=== PATIENT | male | born 1960 | race Caucasian/White ===

== ENCOUNTER 2016-10-19 18:03 | Observation (INO) ==
[2016-10-19] MEDS ORDERED: HYDROmorphone 2 MG/1 ML VIAL IV STA ×2 (18:51→21:06)
[2016-10-19] MEDS ORDERED: SODIUM CHLORIDE 0.9% 1,000 ML IV STA (18:52)
[2016-10-19] MEDS ORDERED: ONDANSETRON 4 MG/2 ML VIAL IV STA (18:52)
--- NOTE | 2016-10-19 18:56 | Emergency Department Note ---
Arrival - Arrival Chief Complaint: Abdominal / Flank Pain Stated Complaint: pain in left side ED Nursing Triage Note: Pt right lower abd pain and flank pain onset this am - [place] is here from out of town - HX of factor 5 Mode of Arrival: Ambulatory Limitations: No Limitations Source: Patient Time Seen by Provider: 10/19/16 18:49 - History of Present Illness HPI Narrative: The patient complains of right flank pain since around 9:00 this morning. He describes it as "hot and stabbing" and says it is now radiating to the back and the right abdomen. He says the pain increases when he urinates or is walking. No other exacerbating or relieving factors. He has had nausea and vomiting as well with one episode of diarrhea. He has a history of kidney stones. Allergies/Adverse Reactions: Allergies Allergy/AdvReac Type Severity Reaction Status Date / Time metoclopramide [From Reglan] Allergy Nausea Verified 10/19/16 18:09 tramadol Allergy RASH Verified 10/19/16 18:09 Warfarin [From Coumadin] Allergy RASH Verified 10/19/16 18:09 Home Medications: Home Medications Medication Instructions Recorded Confirmed Type Apixaban [Eliquis] 5 mg PO BID 10/19/16 10/19/16 History Gabapentin Cap/Tab [Neurontin 600 mg PO TID 10/19/16 10/19/16 History Cap/Tab] Ranitidine Tab [Zantac Tab] 150 mg PO DAILY 10/19/16 10/19/16 History Simvastatin 10 mg PO DAILY 10/19/16 10/19/16 History Valsartan/Hydrochlorothiazide 1 each PO DAILY 10/19/16 10/19/16 History [Diovan Hct 320-12.5 mg Tab] Review of System - Review of System 12 point system: reviewed and no additional remarkable complaints except as stated - Review of System Constitutional: Absent: diaphoresis, fever Head/Ears/Nose/Throat: Present: nasal drainage Respiratory: Absent: cough Cardiovascular: Absent: chest pain Gastrointestinal: Present: abdominal pain, nausea, vomiting, diarrhea. Absent: constipation, hematemesis, melena, hematochezia Genitourinary male: Present: dysuria. Absent: hematuria, discharge Musculoskeletal: Present: back pain Medical,Surgical,& Family Hx - Medical History Cardio: History of: Hypertension, [place], Cardiovascular Problems (stents x 5 and bypass) Endocrine: History of: Dyslipidemia Hematology: History of: Bleeding Problems (Factor 5), Clotting Problems (DVT and PE) - Surgical History Cardiac Surgeries: Sugical HX of: Cardiac Catheterization (Stent 5), Cardiac Surgery - Family History Family History: noncontributory - Social History Smoking Status: Never smoker Frequency of Alcohol Use: None Type of Drug Use: None Exam Physical Examination: GENERAL: Alert. No acute distress. HEENT: Normocephalic and atraumatic. There is no nasal drainage. No pharyngeal erythema or exudate. NECK: Normal inspection. Supple. No lymphadenopathy or meningismus. LUNGS: No respiratory distress. Few sparse wheezes bilaterally. Good air movement. HEART: Regular rate and rhythm. ABDOMEN: Soft, nondistended with normal bowel sounds. Right upper quadrant, right middle abdominal, right flank and right mid back tenderness. No guarding or rebound. BACK: Normal inspection. SKIN: Color normal. Warm and dry. EXTREMITIES: Nontender. Normal range of motion. No pedal edema. NEUROLOGICAL/PSYCHIATRIC: Alert and oriented -3 with normal mood and affect. Cranial nerves normal. No motor or sensory deficit. Vital Signs: Vital Signs Temperature 98.3 F 10/19/16 18:30 Pulse Rate 90 10/19/16 21:49 Respiratory Rate 20 10/19/16 21:49 Blood Pressure 138/84 10/19/16 21:49 O2 Sat by Pulse Oximetry 95 10/19/16 21:49 Course - Reevaluation(s) Reevaluation #1: The patient feels better after pain medication but still having right upper quadrant pain and tenderness. The gallbladder ultrasound showed some gallbladder wall thickening but no stones. A HIDA scan was recommended. I have discussed patient with Dr. Babcock and will admit to him. Time: 23:02 Results - Labs CBC & BMP: 10/19/16 18:26 10/19/16 18:26 Lab Results: I have reviewed the patients labs Labs: Laboratory Tests 10/19/16 10/19/16 10/19/16 18:26 18:26 18:49 INR 1.0 PT Patient/Control Mix 10.7 Circ Anticoag PTT 30.1 Total Bilirubin 0.40 AST 16 ALT 18 Globulin 3.8 H Amylase 44 Lipase 170.0 Ur Specific [place] 1.006 Urine Leukocytes Negative Urine RBC <1 Urine WBC <1 - Impressions CT of the abdomen and pelvis showed no renal or ureteral stones. Possible cholelithiasis. Diverticulosis without diverticulitis. Gallbladder ultrasound showed no stones but did show gallbladder wall thickening. Disposition Clinical Impression: Cholecystitis, Abdominal pain Case discussed with: patient, patient's family Disposition: Still a Patient Condition: Stable Time of Disposition: 23:04
[2016-10-19 19:00] LABS: Basophils # 0.1 10*3/uL (0.0-0.2); Basophils % 1.2 % (0.0-0.8); Eosinophils # 0.5 10*3/uL (0.0-0.87); Eosinophils % 7.9 % (0.00-10.9); Hematocrit 44.8 VOL% (42.0-52.0); Hemoglobin 14.2 GM/DL (14.0-18.0); Immature Granulocytes % 0.3 %; Immature Granulocytes Absolute 0.02 #; Lymphocytes # 1.3 10*3/uL (1.4-4.0); Lymphocytes % 21.3 % (21.2-54.2); Mean Corpuscular HGB Conc 31.7 GM/DL (32-36); Mean Corpuscular Hemoglobin 27 PG (27-34); Mean Corpuscular Volume 83.7 FL (87-102); Monocytes # 0.6 10*3/uL (0.11-0.8); Monocytes % 9.3 % (1.7-12.7); Neutrophils # 3.6 10*3/uL (1.4-7.4); Platelet Count 252 T/CUMM (130-400); Red Blood Count 5.35 MC/CUMM (3.8-5.5); Red Cell Distribution Width 16.4 % (9.3-17.3); White Blood Count 6.1 T/CUMM (4-12)
[2016-10-19] MEDS ORDERED: ONDANSETRON 4 MG/2 ML VIAL ONE (19:02)
[2016-10-19] MEDS ORDERED: HYDROmorphone 2 MG/1 ML VIAL ONE ×2 (19:03→21:14)
[2016-10-19 19:06] LABS: Apearance,Urine CLEAR (Clear); Bilirubin,Urine Negative (Negative); Blood, Urine Negative (Negative); Glucose,Urine (UA) Negative (Negative); Ketones,Urine Negative (Negative); Nitrite,Urine Negative (Negative); Protein,Urine Negative; RBC,Urine <1 /HPF (0-4); Urine Color Straw (Yellow); Urine Specific Gravity 1.006 (1.001-1.035); Urine Urobilinogen < 2.0 EU/DL (0.2-1.0); WBC,Urine <1 /HPF (0-6)
[2016-10-19 19:08] LABS: PT Patient Result 10.7 SECS; Partial Thromboplastin Time 30.1 SECS (0-40)
[2016-10-19 19:13] LABS: Albumin 3.7 G/DL (3.4-5.0); Bilirubin,Total 0.4 MG/DL (0.2-1.0); Calcium 8.5 MG/DL (8.5-10.1); Osmolality,Calculated 277.4 MOS/KG (273-304); Potassium 3.9 MMOL/L (3.5-5.1); Total Protein 7.5 G/DL (6.4-8.3)
--- NOTE | 2016-10-19 20:11 | CT Report ---
History: Right lower abdominal pain Date: 10/19/2016 Study: CT abdomen and pelvis without contrast Comparison exam: No previous Technique: Spiral CT sections were obtained from the lung bases to the pubic symphysis without contrast. The CT exam was performed using one or more of the following dose reduction techniques: Automated exposure control, adjustment of the mA and/or kV according to patient size, or use of iterative reconstruction technique. CT abdomen: There is no jesse pneumonia. There is mild platelike scar or subsegmental atelectasis in the lower lungs. There is a 10 mm calcified granuloma in the left lower lobe. There is no pleural or pericardial effusion. There is no evidence of pneumoperitoneum. There is an equivocal small gallstone in the neck of the gallbladder. The liver, spleen, bile ducts, pancreas, adrenal glands, and kidneys are generally unremarkable in noncontrast CT appearance, aside from some mild diffuse fatty infiltration of the pancreas. There is an infrarenal IVC filter in place. There is no aneurysm of the moderately calcified abdominal aorta. There is diverticulosis without jesse diverticulitis. The appendix is identified and appears normal. There is no lymphadenopathy by short axis diameter criteria. CT pelvis: There is no obvious pelvic mass or abnormal pelvic fluid collection. There is metallic artifact from the bilateral hip prostheses which limits evaluation. There is prominent degenerative disc disease of the mid to lower lumbar spine. Impression: No radiopaque renal or ureteral stone. No hydronephrosis. No evidence of appendicitis Potential cholelithiasis. Consider gallbladder ultrasound if gallbladder disease is suspected Diverticulosis without jesse diverticulitis PROCEDURE INTERPRETED AT [facility] DEPARTMENT OF RADIOLOGY Final Report Signed by: Dr. Constance Sawyer
--- NOTE | 2016-10-19 21:21 | Ultrasound Report ---
History: Right upper quadrant abdominal pain Date: 10/19/2016 Study: Gallbladder ultrasound Comparison exam: No previous similar for comparison Real-time ultrasound images were captured and archived. The exam was technically difficult because of patient body habitus. No gross gallstones are seen, though evaluation was technically difficult. There is a positive sonographic Palacios sign. There is gallbladder wall thickening at 4 mm. The liver is upper normal in size at 17 cm length and is without gross mass lesion. There is hepatopedal flow in the portal vein. The visualized pancreas and right kidney appear normal. The common bile duct measures 3.9 mm diameter. Impression: No gallstones are seen, though the exam was technically difficult because of body habitus. There is gallbladder wall thickening as well as a positive sonographic Palacios sign. Consider further evaluation with nuclear medicine biliary scan if clinically appropriate, to exclude cholecystitis. PROCEDURE INTERPRETED AT [facility] DEPARTMENT OF RADIOLOGY Final Report Signed by: Dr. Constance Sawyer
[2016-10-20] MEDS ORDERED: ACETAMINOPHEN 325 MG TABLET PO PRN (00:05)
[2016-10-20] MEDS ORDERED: ONDANSETRON 4 MG/2 ML VIAL IV PRN (00:05)
[2016-10-20] MEDS ORDERED: PROMETHAZINE 25 MG/1 ML VIAL IM PRN (00:05)
[2016-10-20] MEDS ORDERED: SODIUM CHLORIDE 0.45% 1,000 ML IV SCH (00:05)
[2016-10-20] MEDS ORDERED: KETOROLAC 30 MG/1 ML VIAL IV SCH (01:00)
[2016-10-20 04:20] VITALS: BP 115/66
--- NOTE | 2016-10-20 06:47 | General Surg History&Physical ---
Assessment and Plan - Time spent with patient Time spent with patient: Less than 30 minutes (1) Cholecystitis Status: Acute Assessment and plan: Impression: Abdominal pain possibly secondary to cholecystitis Plan: 1. IV antibiotics 2. Hold his anticoagulation for now 3. HIDA scan to confirm cholecystitis 4. Surgery had been considered but certainly the Eliquis would have to be held for 3-4 days before that could be done. Current Visit: Yes History of Present Illness Chief complaint: Abdominal pain epigastric History of present illness: Mr. Agudelo is a 56 year old male who came in because of epigastric pain and right flank pain and was seen in emergency room. He was admitted for the possibility of cholecystitis having questionable studies showing gallbladder disease. He had an CT scan abdomen and pelvis that was unremarkable except for the questionable possibility of a stone in the gallbladder. He underwent an ultrasound gallbladder that did not show any stones but showed some gallbladder wall thickening and they felt indicated a bit of a Palacios sign. He was admitted put on IV antibiotics so that we get a HIDA scan this morning. It is reported in the night the patient was upset because he could not get his Eliquis which we tried to inform him could not get out of if there is a chance we needed to do surgery on him. He did remain but apparently got up and left this morning because he could not get any pain medicine because we needed to delay given pain medicine until we get the HIDA scan out of the way to be sure that he had significant gallbladder disease. I was unable to see him in checking because of his unreasonable attitude and the fact that he left AMA. Home Medications Medication Instructions Recorded Confirmed Type Apixaban [Eliquis] 5 mg PO BID 10/19/16 10/20/16 History Gabapentin Cap/Tab [Neurontin 600 mg PO TID 10/19/16 10/20/16 History Cap/Tab] Ranitidine Tab [Zantac Tab] 150 mg PO DAILY 10/19/16 10/20/16 History Simvastatin 10 mg PO DAILY 10/19/16 10/20/16 History Valsartan/Hydrochlorothiazide 1 each PO DAILY 10/19/16 10/20/16 History [Diovan Hct 320-12.5 mg Tab] Aspirin 81 mg PO DAILY 10/20/16 10/20/16 History Allergies Allergy/AdvReac Type Severity Reaction Status Date / Time metoclopramide [From Reglan] Allergy Nausea Verified 10/19/16 18:09 tramadol Allergy RASH Verified 10/19/16 18:09 Warfarin [From Coumadin] Allergy RASH Verified 10/19/16 18:09 Medical,Surgical,& Family Hx - Medical History Cardio: History of: Hypertension, CT (five), Cardiovascular Problems (stents x 5 and 2 triple bypass) Endocrine: History of: Dyslipidemia Respiratory: History of: Pneumonia ("in the past") Gastrointestinal: History of: Gastrointestinal Bleed ("three times") Musculoskeletal: History of: Musculoskeletal Problems (arthritis) Hematology: History of: Bleeding Problems (Factor 5), Clotting Problems (DVT and PE) - Surgical History Cardiac Surgeries: Sugical HX of: Cardiac Catheterization (Stent 5), Cardiac Surgery Orthopedic Surgeries: Surgical HX of;: Total Hip Replacement (3 right hip surgeries; 2 left hip surgeries) - Social History Smoking Status: Never smoker Frequency of Alcohol Use: None Type of Drug Use: None Exam - Constitutional Vitals: Period Temp Pulse Resp BP Sys/Gonzalez Pulse Ox Last 24 Hr 96.4 F-97.6 F 80-91 20-20 115-142/66-90 96-98 General appearance: other (And left before exam) 12 point system: reviewed and no additional remarkable complaints except as stated Results - Labs CBC & BMP: 10/19/16 18:26 10/19/16 18:26 Lab Results: I have reviewed the past 24 hour labs - Diagnostic Findings Procedure: CT Abdomen and Pelvis: report reviewed by me (Questionable stone in the gallbladder), Ultrasound: report reviewed by me (Gallbladder wall thickening but no stone)
--- NOTE | 2016-10-20 06:52 | Discharge Summary ---
Hospital Course - Hospital Course Hospital Course: Discharge summary: Discharge diagnosis: 1. Abdominal pain possibly secondary to acute cholecystitis 2. On anticoagulation 3. History of cardiovascular disease Brief summary: Patient was admitted in the evening to get a HIDA scan to confirm whether he had cholecystitis or not. He came in with abdominal pain with an CT scan that suggested a stone in the gallbladder but ultrasound did not show any stones. He was admitted put on some IV antibiotics that he will get a HIDA scan this morning to confirm whether not he had gallbladder disease. Nurses called in the night that he was very upset because he could not take his evening dose of Eliquis. We will try to inform him of the fact that we needed to hold ES if there is a possibility that would have to plan some surgery at some point. He seemed to remain during the night but because he could get any pain medicine to leave a completed a HIDA scan this morning he got up and was upset again and was very rude to the nurses at which time he apparently just disappeared without notifying anybody that he left. Nothing more than we could do since this was his choice to leave AGAINST MEDICAL ADVICE and that he was very rude to the nursing staff at this time. - Time spent with patient Time with patient DS: Less than 30 minutes Diagnosis - Discharge Diagnosis (1) Cholecystitis Status: Chronic Discharge Plan - Discharge Data Disposition: Left Against Medical Advice Condition at Discharge: Stable - Discharge Medications No Action Ranitidine Tab [Zantac Tab] 150 mg PO DAILY Valsartan/Hydrochlorothiazide [Diovan Hct 320-12.5 mg Tab] 1 each PO DAILY Simvastatin 10 mg PO DAILY Aspirin 81 mg PO DAILY Apixaban [Eliquis] 5 mg PO BID Gabapentin Cap/Tab [Neurontin Cap/Tab] 600 mg PO TID - Follow Up or Referral - Forms/Instructions Exam - Constitutional Vitals: Period Temp Pulse Resp BP Sys/Gonzalez Pulse Ox Last 24 Hr 96.4 F-97.6 F 80-91 20-20 115-142/66-90 96-98 General appearance: other (Unable to do a proper exam since patient left AGAINST MEDICAL ADVICE) Discharge Results Procedures and tests throughout hospitalization: Pending Orders 10/20/16 04:00 HIDA Scan [NM hepatobiliary] IN AM Comprehensive Metabolic Panel IN AM - Imaging and Cardiology Procedure: CT Abdomen and Pelvis: report reviewed by me (Negative except for the questionable stone in the gallbladder), Ultrasound: report reviewed by me ( No stones seen in the gallbladder but gallbladder wall thickening.) DS: Provider Date of admission: 10/19/16 23:08 Primary care physician: . No PCP Attending physician on admission: Isaiah Babcock MD Discharging clinician: Isaiah Babcock MD Expected date of discharge: 10/20/16
[2016-10-20] MEDS ORDERED: PANTOPRAZOLE 40 MG TABLET PO SCH (09:00)
== END 2016-10-20 06:30 | disposition left against medical advice (07) | DRG 446 ==
LOC: N.ED 18:03 → N.EDINP 23:08 → INTOOBSV 23:08 → N.EDINP 23:57 → N.3E 10-20 00:09
PROVIDERS: ADMIT Specialist; ATTEND Specialist